=== PATIENT | female | born 1980 | race Caucasian/White ===

== ENCOUNTER 2016-12-02 18:21 | Emergency (ER) | payer OTHER ==
[2014-10-25 13:03] VITALS: BP 113/66
== END 2016-12-02 20:15 | disposition left against medical advice (07) ==
LOC: ER 18:21
DX: S59.902A Unspecified injury of left elbow, initial encounter (principal); Z53.21 Procedure and treatment not carried out due to patient leaving prior to being seen by health care provider; V19.69XA Unspecified pedal cyclist injured in collision with other motor vehicles in traffic accident, initial encounter; Y93.89 Activity, other specified; Y92.89 Other specified places as the place of occurrence of the external cause; Y99.8 Other external cause status